=== PATIENT | male | born 1955 | race American Indian/Alaskan Native ===

== ENCOUNTER 2016-11-27 12:58 | Emergency (ER) | payer MEDICARE ==
--- NOTE | 2016-11-27 14:45 | XRay Report ---
ROUTINE CHEST, TWO VIEWS: PA and lateral views demonstrate the heart and mediastinal contour to be of normal size and shape. The lungs are clear and fully expanded and the soft tissues and bony structures are normal. IMPRESSION: Normal study.
[2016-11-27 14:48] LABS: Basophils % (Auto) 0.6 % (0.0-1.8); Eosinophils % (Auto) 0.5 % (0.0-4.3); Hematocrit 43.2 % (35.5-45.6); Hemoglobin 13.9 gm/dl (11.8-15.2); Mean Corpuscular HGB Conc 32 % (32-34); Mean Corpuscular Hemoglobin 27 pg (28-32); Mean Corpuscular Volume 85 fl (84-94); Platelet Count 199 K/mm3 (140-440); Red Blood Count 5.09 M/mm3 (3.65-5.03); Red Cell Distribution Width 13.1 % (13.2-15.2); White Blood Count 8.7 K/mm3 (4.5-11.0)
[2016-11-27 14:58] LABS: INR 0.98 (0.87-1.13)
[2016-11-27 14:59] LABS: Partial Thromboplastin Time 26.1 Sec. (24.2-36.6)
[2016-11-27 15:09] LABS: Creatine Kinase MB 3.9 ng/mL (0.0-4.0)
[2016-11-27 15:10] LABS: Alanine Aminotransferase 46 units/L (7-56); Albumin/Globulin Ratio 1.1 %; Alkaline Phosphatase 70 units/L (35-129); BUN/Creatinine Ratio 12.22; Bilirubin,Direct 0.4 mg/dL (0-0.2); Bilirubin,Indirect 0.5 mg/dL; Bilirubin,Total 0.9 mg/dL (0.1-1.2); Blood Urea Nitrogen 11 mg/dL (9-20); Calcium 9.4 mg/dL (8.4-10.2); Carbon Dioxide 27 mmol/L (22-30); Creatine Kinase 330 units/L (55-170); Glucose 228 mg/dL (75-100); Total Protein 7.6 g/dL (6.3-8.2)
[2016-11-27 15:11] LABS: Anion Gap 16 mmol/L; Chloride 95.5 mmol/L (98-107); Potassium 4.7 mmol/L (3.6-5.0); Sodium 134 mmol/L (137-145)
[2016-11-27] MEDS ORDERED: NORMODYNE IV ONE (15:18)
--- NOTE | 2016-11-27 15:41 | Emergency Department Report ---
ED General Adult HPI - General Chief complaint: High BP Stated complaint: HEARING LOSS/DIABETIC Time Seen by Provider: 11/27/16 14:54 Source: patient Mode of arrival: Ambulatory Limitations: No Limitations - History of Present Illness Initial comments: Patient states that he came to the emergency department today for a "checkup". He admits he has been noncompliant with his diabetes and hypertension medication for months if not years. 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 He has no headache now. He's had no recent neurological change. He does state that for 6 months he's had decreased hearing in his right ear. However he is able to discriminate speech perfectly well when I'm standing on his right side. He states he thought it might be wax. However, it has not improved for the last 6 months. He denies any change in his vision any focal weakness or numbness any difficulty with coordination or gait. He is fully ambulatory and has no trouble speaking. -: Gradual, month(s) Associated Symptoms: denies other symptoms - Related Data Previous Rx's Medication Instructions Recorded Last Taken Type Labetalol [Normodyne TAB] 100 mg PO BID #30 tablet 11/27/16 Unknown Rx Lisinopril/Hydrochlorothiazide 1 each PO QDAY #30 tablet 11/27/16 Unknown Rx [Zestoretic 20-12.5 mg] Allergies Allergy/AdvReac Type Severity Reaction Status Date / Time No Known Allergies Allergy Verified 11/27/16 15:38 ED Review of Systems ROS: Stated complaint: HEARING LOSS/DIABETIC Other details as noted in HPI Constitutional: denies: chills, fever Eyes: denies: eye pain, eye discharge, vision change ENT: hearing loss. denies: ear pain, throat pain Respiratory: denies: cough, shortness of breath, wheezing Cardiovascular: denies: chest pain, palpitations Endocrine: no symptoms reported Gastrointestinal: denies: abdominal pain, nausea, diarrhea Genitourinary: denies: urgency, dysuria Musculoskeletal: denies: back pain, joint swelling, arthralgia Skin: denies: rash, lesions Neurological: denies: headache, weakness, paresthesias Psychiatric: denies: anxiety, depression Hematological/Lymphatic: denies: easy bleeding, easy bruising ED Past Medical Hx - Past Medical History Previous Medical History?: (time 6 months) Hx Hypertension: Yes Hx Diabetes: Yes Hx Psychiatric Treatment: Yes (DEPRESSION) Hx Asthma: Yes Additional medical history: HIGH CHOLESTEROL. INSOMNIA. SUBARACHNOID HEMORRHAGE - Surgical History Additional Surgical History: LEFT CRANIOTOMY-CLIPPED ANEURYSM - Social History Smoking Status: Never Smoker Substance Use Type: Alcohol, Marijuana Other Social History: Down here from [place] and does not have a primary care provider. - Medications Home Medications: Home Medications Medication Instructions Recorded Confirmed Last Taken Type Labetalol [Normodyne TAB] 100 mg PO BID #30 tablet 11/27/16 Unknown Rx Lisinopril/Hydrochlorothiazide 1 each PO QDAY #30 tablet 11/27/16 Unknown Rx [Zestoretic 20-12.5 mg] ED Physical Exam - General Limitations: No Limitations General appearance: alert, in no apparent distress - Head Head exam: Present: atraumatic, normocephalic - Eye Eye exam: Present: normal appearance, PERRL, EOMI. Absent: scleral icterus - ENT ENT exam: Present: mucous membranes moist, other (mild amount of excess cerumen noted in the right external auditory canal. From what I can see the tympanic membrane looks normal.) - Neck Neck exam: Present: normal inspection, full ROM. Absent: tenderness, meningismus - Respiratory Respiratory exam: Present: normal lung sounds bilaterally. Absent: respiratory distress - Cardiovascular Cardiovascular Exam: Present: regular rate, normal rhythm. Absent: systolic murmur, diastolic murmur, rubs, gallop - GI/Abdominal GI/Abdominal exam: Present: soft, normal bowel sounds. Absent: distended, tenderness, guarding, rebound, rigid - Rectal Rectal exam: Present: deferred - Extremities Exam Extremities exam: Present: normal inspection - Back Exam Back exam: Present: normal inspection - Neurological Exam Neurological exam: Present: alert, oriented X3, CN II-XII intact. Absent: motor sensory deficit - Psychiatric Psychiatric exam: Present: normal affect, normal mood - Skin Skin exam: Present: warm, dry, intact, normal color. Absent: rash ED Course Vital Signs 11/27/16 11/27/16 13:32 14:47 Temperature 98.2 F 98.7 F Pulse Rate 108 H 77 Respiratory 18 12 Rate Blood Pressure 234/114 Blood Pressure 227/110 [Left] O2 Sat by Pulse 97 100 Oximetry - Reevaluation(s) Reevaluation #1: 11/27/16 17:21 Blood pressure is now down to 180/90. This needs an acceptable for acute blood pressure reduction. The patient remains asymptomatic. ED Medical Decision Making - Lab Data Result diagrams: 11/27/16 14:25 11/27/16 14:25 Laboratory Results - last 24 hr 11/27/16 11/27/16 11/27/16 13:42 14:25 14:25 WBC 8.7 RBC 5.09 H Hgb 13.9 Hct 43.2 MCV 85 MCH 27 L MCHC 32 RDW 13.1 L Plt Count 199 Lymph % (Auto) 20.6 [place] % (Auto) 6.4 Eos % (Auto) 0.5 Baso % (Auto) 0.6 Lymph # 1.8 [place] # 0.6 Eos # 0.0 Baso # 0.1 Seg Neutrophils % 71.9 H Seg Neutrophils # 6.2 PT 12.9 INR 0.98 APTT 26.1 Sodium Potassium Chloride Carbon Dioxide Anion Gap BUN Creatinine Estimated GFR BUN/Creatinine Ratio Glucose POC Glucose 238 H Calcium Total Bilirubin Direct Bilirubin Indirect Bilirubin AST ALT Alkaline Phosphatase Total Creatine Kinase CK-MB (CK-2) CK-MB (CK-2) Rel Index Troponin T NT-Pro-B Natriuret Pep Total Protein Albumin Albumin/Globulin Ratio 11/27/16 11/27/16 14:25 14:25 WBC RBC Hgb Hct MCV MCH MCHC RDW Plt Count Lymph % (Auto) [place] % (Auto) Eos % (Auto) Baso % (Auto) Lymph # [place] # Eos # Baso # Seg Neutrophils % Seg Neutrophils # PT INR APTT Sodium 134 L Potassium 4.7 Chloride 95.5 L Carbon Dioxide 27 Anion Gap 16 BUN 11 Creatinine 0.9 Estimated GFR > 60 BUN/Creatinine Ratio 12.22 Glucose 228 H POC Glucose Calcium 9.4 Total Bilirubin 0.9 Direct Bilirubin 0.4 H Indirect Bilirubin 0.5 AST 41 H ALT 46 Alkaline Phosphatase 70 Total Creatine Kinase 330 H CK-MB (CK-2) 3.9 CK-MB (CK-2) Rel Index 1.1 Troponin T < 0.010 NT-Pro-B Natriuret Pep 266.8 Total Protein 7.6 Albumin 4.0 Albumin/Globulin Ratio 1.1 - EKG Data EKG shows normal: sinus rhythm, axis, intervals, QRS complexes, ST-T waves Rate: normal - EKG Data Interpretation: no acute changes - Radiology Data interpreted by me: Chest x-ray shows no radiographic abnormalities Critical care attestation.: If time is entered above; I have spent that time in minutes in the direct care of this critically ill patient, excluding procedure time. ED Disposition Clinical Impression: Uncontrolled hypertension Type 2 diabetes mellitus Qualifiers: Diabetes mellitus complication status: without complication Diabetes mellitus [employer] insulin use: without senior care use Qualified Code(s): E11.9 - Type 2 diabetes mellitus without complications Hearing loss Qualifiers: Laterality: right Qualified Code(s): H91.91 - Unspecified hearing loss, right ear Disposition: DISCHARGED TO HOME OR SELFCARE Is pt being admited?: No Does the pt Need Aspirin: No Condition: Stable Instructions: Hypertension (ED), Diabetes Mellitus Type 2 in Adults (ED) Additional Instructions: Follow-up on your hypertension is essential. Rx as directed. Return any acute change or problem. I've given U the name of an ear nose and throat doctor as well as a primary care clinic. Prescriptions: Labetalol [Normodyne TAB] 100 mg PO BID #30 tablet Lisinopril/Hydrochlorothiazide [Zestoretic 20-12.5 mg] 1 each PO QDAY #30 tablet Referrals: PRIMARY CARE, [Primary Care Provider] - 3-5 Days [facility] [Provider Group] - 3-5 Days [facility] [Provider Group] - 2-3 Days Time of Disposition: 17:24
[2016-11-27] MEDS ORDERED: CATAPRES PO ONE (17:26)
[2016-11-27 17:41] VITALS: BP 189/92
== END 2016-11-27 17:42 | disposition home or self-care (01) ==
LOC: ED 12:58
DX: H91.91 Unspecified hearing loss, right ear (principal); I10 Essential (primary) hypertension; E11.9 Type 2 diabetes mellitus without complications; J45.909 Unspecified asthma, uncomplicated; E78.00 Pure hypercholesterolemia, unspecified; F12.10 Cannabis abuse, uncomplicated
CPT/HCPCS: 36415; 71020; 80048; 80074; 82550; 82553; 82962; 83880; 84484; 85025; 85610; 85730; 93005; 93010

== ENCOUNTER 2018-02-18 17:37 | Emergency (ER) | payer SELFPAY ==
[2018-02-18 18:00] VITALS: BP 175/93
== END 2018-02-18 20:00 | disposition left against medical advice (07) ==
LOC: ED 17:37
DX: R51 Headache (principal); Z53.21 Procedure and treatment not carried out due to patient leaving prior to being seen by health care provider